=== PATIENT | female | born 1980 | race Caucasian/White ===

== ENCOUNTER 2018-06-08 07:34 | Emergency (ER) | payer BC ==
[~2018-06-08] VITALS: Ht 170.1 cm; Wt 70.3 kg
[~2018-06-08 07:34] MED LIST: FLEXERIL10 MG PO; HYDROCODONE BIT1 T11 PO; MEDROL DOSEPAK4 MG PO; MOTRIN800 MG PO; MULTIVITAMIN1 CTB PO; VICODIN 5/500 505 MG PO; VICODIN 500 MG-1 TAB PO; XANAX0.25 MG PO; ZOFRAN ODT8 MG PO; ZOFRAN4 MG PO; [UNRECOGNIZED DRUG - OTHER] TD
[2018-06-08] MEDS ORDERED: PREDNISONE50 MG PO (08:01)
[2018-06-08] MEDS ORDERED: PEPCID20 MG PO (08:01)
== END 2018-06-08 08:07 | disposition home or self-care (01) ==
LOC: ED 07:34
DX: L25.9 Unspecified contact dermatitis, unspecified cause (principal); K21.9 Gastro-esophageal reflux disease without esophagitis; F17.200 Nicotine dependence, unspecified, uncomplicated; Z88.1 Allergy status to other antibiotic agents; Z79.899 Other long term (current) drug therapy; Z90.710 Acquired absence of both cervix and uterus

== ENCOUNTER 2018-06-10 16:34 | Emergency (ER) | payer BC ==
[~2018-06-10] VITALS: Ht 170.1 cm; Wt 71.2 kg
[~2018-06-10 16:34] MED LIST changes: +PEPCID20 MG PO; +PREDNISONE50 MG PO
[2018-06-10 17:39] LABS: BASO # 0.1 10*3/uL (0.0-0.1); BASO % 0.3 % (0.0-1.0); EOS # 0.1 10*3/uL (0.0-0.4); EOS % 0.7 % (1.0-4.0); HEMATOCRIT 45.5 % (37.0-47.0); HEMOGLOBIN 15.2 g/dl (12.0-16.0); LYMPH # 4.8 10*3/uL (1.3-4.4); LYMPH % 28.8 % (27.0-41.0); MEAN CELL VOLUME 91.7 fl (81.0-99.0); MEAN CORPUSCULAR HGB 30.6 pg (27.0-31.0); MEAN CORPUSCULAR HGB CONC 33.4 g/dl (33.0-37.0); MEAN PLATELET VOLUME 9.5 fl (9.6-12.3); MONO # 0.9 10*3/uL (0.1-1.0); MONO % 5.5 % (3.0-9.0); NEUT # 10.6 10*3/uL (2.3-7.9); NEUT % 64.2 % (47.0-73.0); PLATELET COUNT AUTOMATED 411 10*3/uL (130-400); RED BLOOD COUNT 4.96 10*6/uL (4.10-5.10); RED CELL DISTRI WIDTH 12.8 % (0-14.5); WHITE BLOOD COUNT 16.5 10*3/uL (4.8-10.8)
[2018-06-10 17:55] LABS: ALBUMIN 4.1 gm/dl (3.1-4.5); ALKALINE PHOSPHATASE 93 U/L (45-117); BUN 16 mg/dl (7-24); CHLORIDE 103 mmol/L (98-107); CREATININE 0.76 mg/dL (0.55-1.02); POTASSIUM 3.7 mmol/L (3.5-5.1); SGOT/AST 16 IU/L (3-35); SGPT/ALT 28 U/L (12-78); SODIUM 139 mmol/L (136-145); TOTAL PROTEIN 7.7 gm/dL (6.4-8.2)
== END 2018-06-10 20:00 | disposition short-term general hospital (02) ==
LOC: ED 16:34
PROVIDERS: Physician Assistant
DX: T78.49XA Other allergy, initial encounter (principal); L50.9 Urticaria, unspecified; R79.1 Abnormal coagulation profile; Z88.1 Allergy status to other antibiotic agents; X58.XXXA Exposure to other specified factors, initial encounter

== ENCOUNTER 2019-01-28 18:11 | Emergency (ER) | payer BC ==
[~2019-01-28] VITALS: Ht 170.1 cm; Wt 68.9 kg
[~2019-01-28 18:11] MED LIST changes: +DICYCLOMINE HCL20 MG PO; +DULOXETINE HCL30 MG PO; +DULOXETINE HCL60 MG PO; +FAMOTIDINE20 M1 PO; +LIDOCAINE 2% PO; +MAALOX ADVANCE355 M1 PO; +NEURONTIN300 MG PO; +PANTOPRAZOLE SO40 MG PO; -XANAX0.25 MG PO; +XANAX1 MG PO
[2019-01-28 18:34] LABS: BILIRUBIN NEGATIVE (NEGATIVE); BLOOD NEGATIVE (NEGATIVE); CLARITY CLEAR (CLEAR); COLOR YELLOW (YELLOW); GLUCOSE NEGATIVE (NEGATIVE); KETONE NEGATIVE (NEGATIVE); LEUKO ESTERASE NEGATIVE (NEGATIVE); NITRITE NEGATIVE (NEGATIVE); UROBILINOGEN 0.2 E.U./dl (0.2-1.0)
[2019-01-28 18:59] LABS: EPITHELIAL CELLS 16-20
[2019-01-28 19:14] LABS: BASO # 0.1 10*3/uL (0.0-0.1); BASO % 0.7 % (0.0-1.0); EOS # 0.4 10*3/uL (0.0-0.4); EOS % 3.6 % (1.0-4.0); HEMATOCRIT 42.8 % (37.0-47.0); HEMOGLOBIN 13.9 g/dl (12.0-16.0); LYMPH # 3.3 10*3/uL (1.3-4.4); LYMPH % 32.7 % (27.0-41.0); MEAN CORPUSCULAR HGB 31.2 pg (27.0-31.0); MEAN CORPUSCULAR HGB CONC 32.5 g/dl (33.0-37.0); MEAN PLATELET VOLUME 10.1 fl (9.6-12.3); MONO # 0.5 10*3/uL (0.1-1.0); MONO % 5.2 % (3.0-9.0); NEUT # 5.7 10*3/uL (2.3-7.9); NEUT % 57.4 % (47.0-73.0); PLATELET COUNT AUTOMATED 306 10*3/uL (130-400); RED BLOOD COUNT 4.46 10*6/uL (4.10-5.10); RED CELL DISTRI WIDTH 13.7 % (0-14.5)
[2019-01-28 19:14] LABS: URINE AMPHETAMINES < 1000 (1000ng/ml); URINE BARBITURATES < 200 (200ng/ml); URINE BENZODIAZEPINES > 200 (200ng/ml); URINE CANNABINOIDS (THC) > 50 (50ng/ml); URINE COCAINE > 300 (300ng/ml); URINE METHADONE < 300 (300ng/ml); URINE OPIATES < 300 (300ng/ml)
[2019-01-28 19:21] LABS: URINE PHENCYCLIDINE < 25 (25ng/ml)
[2019-01-28 19:48] LABS: SGOT/AST 14 IU/L (3-35)
[2019-01-28 20:05] LABS: ALBUMIN 3.8 gm/dl (3.1-4.5); ALKALINE PHOSPHATASE 89 U/L (45-117); BUN 8 mg/dl (7-24); CHLORIDE 109 mmol/L (98-107); CREATININE 0.87 mg/dL (0.55-1.02); LIPASE 132 U/L (73-393); SGPT/ALT 17 U/L (12-78); SODIUM 144 mmol/L (136-145); TOTAL PROTEIN 7.1 gm/dL (6.4-8.2)
[2019-01-28] MEDS ORDERED: ZOFRAN4 MG PO (20:13)
[2019-01-28] MEDS ORDERED: DICYCLOMINE HCL20 MG PO (20:15)
== END 2019-01-28 20:23 | disposition home or self-care (01) ==
LOC: ED 18:11
PROVIDERS: Physician Assistant
DX: R10.13 Epigastric pain (principal); R11.0 Nausea; F17.210 Nicotine dependence, cigarettes, uncomplicated; Z88.1 Allergy status to other antibiotic agents; Z87.19 Personal history of other diseases of the digestive system; Z90.49 Acquired absence of other specified parts of digestive tract

== ENCOUNTER 2021-09-15 17:05 | Emergency (ER) | payer BC ==
[~2021-09-15] VITALS: Wt 71.7 kg
[2021-09-15 18:07] LABS: BASO # 0.1 10*3/uL (0.0-0.1); BASO % 0.7 % (0.0-1.0); EOS # 0.3 10*3/uL (0.0-0.4); EOS % 1.7 % (1.0-4.0); HEMATOCRIT 38.4 % (37.0-47.0); LYMPH % 20.1 % (27.0-41.0); MEAN CELL VOLUME 89.1 fl (81.0-99.0); MEAN CORPUSCULAR HGB 29.7 pg (27.0-31.0); MEAN CORPUSCULAR HGB CONC 33.3 g/dl (33.0-37.0); MEAN PLATELET VOLUME 9.4 fl (9.6-12.3); MONO # 0.8 10*3/uL (0.1-1.0); NEUT # 10.9 10*3/uL (2.3-7.9); NEUT % 72.2 % (47.0-73.0); PLATELET COUNT AUTOMATED 370 10*3/uL (130-400); RED BLOOD COUNT 4.31 10*6/uL (4.10-5.10); RED CELL DISTRI WIDTH 13.9 % (0-14.5); WHITE BLOOD COUNT 15.1 10*3/uL (4.8-10.8)
[2021-09-15 18:12] LABS: BILIRUBIN Negative (Negative); BLOOD Negative (Negative); CLARITY Clear (Clear); COLOR Yellow (Yellow); GLUCOSE Negative (Negative); KETONE Negative (Negative); LEUKO ESTERASE Negative (Negative); NITRITE Negative (Negative); PH 5.5 (4.5-8.0); SPECIFIC GRAVITY 1.025 (1.001-1.030)
[2021-09-15 18:23] LABS: ALKALINE PHOSPHATASE 87 U/L (45-117); BUN 11 mg/dl (7-24); CHLORIDE 105 mmol/L (98-107); CREATININE 0.78 mg/dL (0.55-1.02); LIPASE 192 U/L (73-393); POTASSIUM 3.6 mmol/L (3.5-5.1); SGOT/AST 22 IU/L (3-35); SGPT/ALT 35 U/L (12-78); SODIUM 139 mmol/L (136-145); TOTAL PROTEIN 7.2 gm/dL (6.4-8.2)
[2021-09-15 18:26] LABS: BACTERIA 1+; RBC 0-2 rbc/hpf (0-2)
== END 2021-09-15 20:42 | disposition home or self-care (01) ==
LOC: ED 17:05
PROVIDERS: Physician Assistant
DX: R10.9 Unspecified abdominal pain (principal); R11.0 Nausea; Z90.710 Acquired absence of both cervix and uterus; Z98.890 Other specified postprocedural states; Z88.1 Allergy status to other antibiotic agents; Z90.49 Acquired absence of other specified parts of digestive tract; F17.210 Nicotine dependence, cigarettes, uncomplicated

== ENCOUNTER 2021-10-23 21:26 | Inpatient (IN) | payer BC ==
[~2021-10-23] VITALS: Ht 180.3 cm; Wt 81.2 kg
[~2021-10-23 21:26] MED LIST changes: +XANAX0.25 MG PO; -XANAX1 MG PO
[2021-10-23 21:40] VITALS: BP 107/58
[2021-10-23 21:42] LABS: BASO # 0.1 10*3/uL (0.0-0.1); BASO % 0.5 % (0.0-1.0); EOS # 0.2 10*3/uL (0.0-0.4); HEMATOCRIT 35.8 % (37.0-47.0); LYMPH # 2.9 10*3/uL (1.3-4.4); LYMPH % 26.5 % (27.0-41.0); MEAN CELL VOLUME 89.9 fl (81.0-99.0); MEAN CORPUSCULAR HGB 29.6 pg (27.0-31.0); MEAN PLATELET VOLUME 9.2 fl (9.6-12.3); MONO # 0.7 10*3/uL (0.1-1.0); MONO % 6.5 % (3.0-9.0); PLATELET COUNT AUTOMATED 407 10*3/uL (130-400); RED BLOOD COUNT 3.98 10*6/uL (4.10-5.10)
[2021-10-23 21:58] LABS: ALKALINE PHOSPHATASE 104 U/L (45-117); BUN 9 mg/dl (7-24); CHLORIDE 107 mmol/L (98-107); CREATININE 0.84 mg/dL (0.55-1.02); LIPASE 414 U/L (73-393); POTASSIUM 3.8 mmol/L (3.5-5.1); SGOT/AST 19 IU/L (3-35); SGPT/ALT 33 U/L (12-78); SODIUM 139 mmol/L (136-145)
[2021-10-23 22:01] VITALS: BP 107/58
[2021-10-23 22:55] VITALS: BP 110/61
[2021-10-23 23:55] VITALS: BP 113/69
[2021-10-24] VITALS: BP 113/69
[2021-10-24] MEDS ORDERED: EFFEXOR XR150 M1 PO (00:26)
[2021-10-24 06:09] LABS: BASO # 0.1 10*3/uL (0.0-0.1); BASO % 0.7 % (0.0-1.0); EOS # 0.2 10*3/uL (0.0-0.4); EOS % 1.6 % (1.0-4.0); LYMPH # 2.1 10*3/uL (1.3-4.4); LYMPH % 21.3 % (27.0-41.0); MEAN CORPUSCULAR HGB CONC 32.6 g/dl (33.0-37.0); MEAN PLATELET VOLUME 9.5 fl (9.6-12.3); MONO # 0.8 10*3/uL (0.1-1.0); MONO % 7.8 % (3.0-9.0); NEUT # 6.7 10*3/uL (2.3-7.9); NEUT % 68.2 % (47.0-73.0); PLATELET COUNT AUTOMATED 358 10*3/uL (130-400); RED BLOOD COUNT 4.13 10*6/uL (4.10-5.10); RED CELL DISTRI WIDTH 14.3 % (0-14.5); WHITE BLOOD COUNT 9.8 10*3/uL (4.8-10.8)
[2021-10-24 06:14] LABS: ALKALINE PHOSPHATASE 148 U/L (45-117); BUN 10 mg/dl (7-24); CHLORIDE 109 mmol/L (98-107); CHOLESTEROL 224 mg/dL (<200); CREATININE 0.79 mg/dL (0.55-1.02); LIPASE 445 U/L (73-393); POTASSIUM 4.2 mmol/L (3.5-5.1); SGOT/AST 352 IU/L (3-35); SGPT/ALT 181 U/L (12-78); SODIUM 141 mmol/L (136-145); TOTAL PROTEIN 6.7 gm/dL (6.4-8.2); TRIGLYCERIDES 283 mg/dl (<150)
[2021-10-24 06:15] LABS: FREE T4 0.94 ng/dl (0.76-1.46); LDL CHOLESTEROL 138 mg/dL (9-159)
[2021-10-24 06:19] LABS: ACT PARTIAL THROMBO TIME 28.7 SECONDS (20.0-32.1)
[2021-10-24 08:00] VITALS: BP 107/52
[2021-10-24 08:17] LABS: VITAMIN D, 25-HYDROXY 21.8 ng/mL (30-100)
[2021-10-24 12:00] VITALS: BP 99/55
[2021-10-24 16:00] VITALS: BP 117/74
[2021-10-24 20:00] VITALS: BP 108/70
[2021-10-25] VITALS: BP 107/56
[2021-10-25 05:32] LABS: BUN 8 mg/dl (7-24); CHLORIDE 105 mmol/L (98-107); CREATININE 0.68 mg/dL (0.55-1.02); POTASSIUM 4.1 mmol/L (3.5-5.1); SODIUM 138 mmol/L (136-145)
[2021-10-25 06:13] LABS: BASO # 0.1 10*3/uL (0.0-0.1); BASO % 1.4 % (0.0-1.0); EOS # 0.2 10*3/uL (0.0-0.4); EOS % 4.1 % (1.0-4.0); HEMATOCRIT 38.7 % (37.0-47.0); LYMPH # 1.9 10*3/uL (1.3-4.4); LYMPH % 39.4 % (27.0-41.0); MEAN CELL VOLUME 90.6 fl (81.0-99.0); MEAN CORPUSCULAR HGB 29.5 pg (27.0-31.0); MEAN CORPUSCULAR HGB CONC 32.6 g/dl (33.0-37.0); MEAN PLATELET VOLUME 9.5 fl (9.6-12.3); MONO # 0.5 10*3/uL (0.1-1.0); MONO % 10.5 % (3.0-9.0); NEUT # 2.2 10*3/uL (2.3-7.9); NEUT % 44.4 % (47.0-73.0); PLATELET COUNT AUTOMATED 377 10*3/uL (130-400); RED BLOOD COUNT 4.27 10*6/uL (4.10-5.10); WHITE BLOOD COUNT 4.9 10*3/uL (4.8-10.8)
[2021-10-25 08:00] VITALS: BP 121/58
[2021-10-25 12:00] VITALS: BP 164/84
[2021-10-25 15:57] VITALS: BP 126/76
[2021-10-25 20:00] VITALS: BP 141/89
[2021-10-26] VITALS: BP 107/88
[2021-10-26 06:15] LABS: CHLORIDE 110 mmol/L (98-107); HEMATOCRIT 37.6 % (37.0-47.0); MEAN CELL VOLUME 90.6 fl (81.0-99.0); MEAN CORPUSCULAR HGB 29.4 pg (27.0-31.0); MEAN CORPUSCULAR HGB CONC 32.4 g/dl (33.0-37.0); MEAN PLATELET VOLUME 9.3 fl (9.6-12.3); PLATELET COUNT AUTOMATED 378 10*3/uL (130-400); POTASSIUM 4.1 mmol/L (3.5-5.1); RED BLOOD COUNT 4.15 10*6/uL (4.10-5.10); SODIUM 142 mmol/L (136-145); WHITE BLOOD COUNT 6.8 10*3/uL (4.8-10.8)
[2021-10-26 06:24] LABS: MANUAL DIFF REFLEX YES
[2021-10-26 06:27] LABS: ALKALINE PHOSPHATASE 212 U/L (45-117); BUN 8 mg/dl (7-24); CREATININE 0.68 mg/dL (0.55-1.02); LIPASE 721 U/L (73-393); SGOT/AST 87 IU/L (3-35); SGPT/ALT 136 U/L (12-78); TOTAL PROTEIN 6.5 gm/dL (6.4-8.2)
[2021-10-26 06:42] LABS: ATYPICAL LYMPHS 3 % (0-0); BASOPHILS 1 % (0-1); TOTAL CELLS COUNTED 100 #CELLS
[2021-10-26 06:43] LABS: PLATELET SUFFICIENCY NORMAL (NORMAL)
[2021-10-26 08:00] VITALS: BP 100/49
[2021-10-26] MEDS ORDERED: ZOFRAN4 MG PO (10:36)
[2021-10-26] MEDS ORDERED: VICO75300 PO (10:36)
[2021-10-26 12:00] VITALS: BP 155/81
[2021-10-26] MEDS ORDERED: PERCOCET 7.5-31 EACH PO (12:51)
== END 2021-10-26 12:00 | disposition home or self-care (01) | DRG 440 ==
LOC: ED 21:26 → EDHOLD 22:36 → 4E 22:36
PROVIDERS: Internal Medicine; ADMIT Student in an Organized Health Care Education/Training Program; ATTEND Student in an Organized Health Care Education/Training Program
DX: K85.90 Acute pancreatitis without necrosis or infection, unspecified (principal); K86.1 Other chronic pancreatitis; D64.9 Anemia, unspecified; D75.839 Thrombocytosis, unspecified; F17.210 Nicotine dependence, cigarettes, uncomplicated; F12.90 Cannabis use, unspecified, uncomplicated; K21.9 Gastro-esophageal reflux disease without esophagitis; F41.9 Anxiety disorder, unspecified; F32.A Depression, unspecified; Z71.6 Tobacco abuse counseling; Z88.1 Allergy status to other antibiotic agents; Z79.899 Other long term (current) drug therapy

== ENCOUNTER 2024-10-16 19:22 | Emergency (ER) | payer BC ==
[~2024-10-16] VITALS: Ht 170.1 cm; Wt 83.9 kg
[~2024-10-16 19:22] MED LIST changes: +EFFEXOR XR150 M1 PO; +HYDROCODONE-AC1 EAC1 PO; +PERCOCET 7.5-31 EACH PO; +VICO75300 PO
[2024-10-16] MEDS ORDERED: SODIUM CHLORIDE 0.9% 1,000 ML IV ONE (20:05)
[2024-10-16] MEDS ORDERED: Ondansetron Hydrochloride 4 MG/2 ML VIAL IV ONE (20:05)
[2024-10-16] MEDS ORDERED: HYDROmorphone Hydrochloride 1 MG/ML SYR IV ONE ×2 (20:05→23:30)
[2024-10-16 20:22] LABS: BASO # 0.1 10*3/uL (0.0-0.1); BASO % 0.7 % (0.0-1.0); EOS # 0.3 10*3/uL (0.0-0.4); EOS % 2.1 % (1.0-4.0); HEMATOCRIT 43.3 % (37.0-47.0); MEAN CELL VOLUME 89.5 fl (81.0-99.0); MEAN CORPUSCULAR HGB 29.8 pg (27.0-31.0); MEAN CORPUSCULAR HGB CONC 33.3 g/dl (33.0-37.0); MEAN PLATELET VOLUME 9.5 fl (9.6-12.3); MONO # 0.7 10*3/uL (0.1-1.0); MONO % 5.7 % (3.0-9.0); NEUT # 7.5 10*3/uL (2.3-7.9); NEUT % 61.3 % (47.0-73.0); PLATELET COUNT AUTOMATED 389 10*3/uL (130-400); RED BLOOD COUNT 4.84 10*6/uL (4.10-5.10); RED CELL DISTRI WIDTH 13.3 % (0-14.5); WHITE BLOOD COUNT 12.2 10*3/uL (4.8-10.8)
[2024-10-16 20:45] LABS: ALKALINE PHOSPHATASE 80 U/L (46-116); BUN 8 mg/dl (9-23); CHLORIDE 106 mmol/L (98-107); LIPASE 80 U/L (12-53); POTASSIUM 3.9 mmol/L (3.4-5.1); SGPT/ALT 30 U/L (5-49); TOTAL PROTEIN 7.3 gm/dL (6.0-8.0)
[2024-10-16] MEDS ORDERED: MORPHINE Sulfate 2 MG/ML SYR IV ONE (21:00)
[2024-10-16] MEDS ORDERED: IOHEXOL 300 MG/ML 100 ML VIAL IV ONE (21:25)
[2024-10-16] MEDS ORDERED: IOHEXOL 300 MG/ML 100 ML VIAL ONE (21:44)
[2024-10-16] MEDS ORDERED: fentaNYL CITRATE 100 MCG/2 ML VIAL IV ONE (22:40)
== END 2024-10-16 23:44 | disposition home or self-care (01) ==
LOC: ED 19:22
PROVIDERS: Nurse Practitioner Family
DX: R10.10 Upper abdominal pain, unspecified (principal); D72.829 Elevated white blood cell count, unspecified; R74.8 Abnormal levels of other serum enzymes; Z79.899 Other long term (current) drug therapy; K21.9 Gastro-esophageal reflux disease without esophagitis; F32.A Depression, unspecified; F41.9 Anxiety disorder, unspecified; F17.200 Nicotine dependence, unspecified, uncomplicated; Z91.030 Bee allergy status; Z91.041 Radiographic dye allergy status; Z90.49 Acquired absence of other specified parts of digestive tract; Z90.710 Acquired absence of both cervix and uterus

== ENCOUNTER 2024-11-15 16:58 | Emergency (ER) | payer BC ==
[~2024-11-15] VITALS: Ht 167.6 cm; Wt 80.7 kg
[2024-11-15] MEDS ORDERED: Metoclopramide Hydrochloride 10 MG/2 ML VIAL IV ONE (17:30)
[2024-11-15] MEDS ORDERED: SODIUM CHLORIDE 0.9% 1,000 ML IV ONE (17:30)
[2024-11-15] MEDS ORDERED: diphenhydrAMINE hydrochloride 50 MG/ML VIAL IV ONE (17:30)
[2024-11-15] MEDS ORDERED: fentaNYL CITRATE/PF 50 MCG/ML SYRINGE IV ONE ×2 (17:30→19:35)
[2024-11-15 17:48] LABS: BASO # 0.1 10*3/uL (0.0-0.1); BASO % 0.9 % (0.0-1.0); EOS # 0.3 10*3/uL (0.0-0.4); HEMATOCRIT 43.6 % (37.0-47.0); MEAN CELL VOLUME 91.2 fl (81.0-99.0); MEAN CORPUSCULAR HGB 29.7 pg (27.0-31.0); MEAN CORPUSCULAR HGB CONC 32.6 g/dl (33.0-37.0); MEAN PLATELET VOLUME 9.5 fl (9.6-12.3); MONO # 0.6 10*3/uL (0.1-1.0); MONO % 5.6 % (3.0-9.0); NEUT # 5.4 10*3/uL (2.3-7.9); NEUT % 52.1 % (47.0-73.0); PLATELET COUNT AUTOMATED 379 10*3/uL (130-400); RED BLOOD COUNT 4.78 10*6/uL (4.10-5.10); RED CELL DISTRI WIDTH 13.8 % (0-14.5); WHITE BLOOD COUNT 10.4 10*3/uL (4.8-10.8)
[2024-11-15 18:11] LABS: ALKALINE PHOSPHATASE 72 U/L (46-116); BUN 11 mg/dl (9-23); CHLORIDE 105 mmol/L (98-107); LIPASE 40 U/L (12-53); POTASSIUM 3.5 mmol/L (3.4-5.1); SGPT/ALT 22 U/L (5-49); TOTAL PROTEIN 6.8 gm/dL (6.0-8.0)
[2024-11-15] MEDS ORDERED: Ondansetron4 MG PO (19:33)
[2024-11-15] MEDS ORDERED: HYDROCODONE-AC1 EACH PO (19:33)
== END 2024-11-15 19:43 | disposition home or self-care (01) ==
LOC: ED 16:58
PROVIDERS: Nurse Practitioner Family
DX: A08.4 Viral intestinal infection, unspecified (principal); F17.200 Nicotine dependence, unspecified, uncomplicated; Z79.899 Other long term (current) drug therapy; Z90.49 Acquired absence of other specified parts of digestive tract; Z90.710 Acquired absence of both cervix and uterus; Z98.890 Other specified postprocedural states

== ENCOUNTER 2025-03-12 11:42 | Emergency (ER) | payer BC ==
[~2025-03-12] VITALS: Ht 167.6 cm; Wt 83.0 kg
[~2025-03-12 11:42] MED LIST changes: +HYDROCODONE-AC1 EACH PO; +Ondansetron4 MG PO
[2025-03-12] MEDS ORDERED: SODIUM CHLORIDE 0.9% 1,000 ML IV ONE (12:25)
[2025-03-12] MEDS ORDERED: HYDROmorphONE Hydrochloride 0.5 MG/0.5 ML SYRINGE IV ONE (12:25)
[2025-03-12] MEDS ORDERED: Ondansetron Hydrochloride 4 MG/2 ML VIAL IV ONE (12:25)
[2025-03-12 12:34] LABS: BASO # 0.1 10*3/uL (0.0-0.1); BASO % 0.8 % (0.0-1.0); EOS # 0.2 10*3/uL (0.0-0.4); EOS % 1.3 % (1.0-4.0); MEAN CELL VOLUME 92.2 fl (81.0-99.0); MEAN CORPUSCULAR HGB 30.5 pg (27.0-31.0); MEAN PLATELET VOLUME 9.6 fl (9.6-12.3); MONO # 0.7 10*3/uL (0.1-1.0); MONO % 5.2 % (3.0-9.0); NEUT # 8.4 10*3/uL (2.3-7.9); NEUT % 66.2 % (47.0-73.0); NUCLEATED RED BLOOD CELL 0.0 % (0.0-0.0); NUCLEATED RED BLOOD CELL 0.0 10*3/uL (0.0-0.0); PLATELET COUNT AUTOMATED 384 10*3/uL (130-400); RED CELL DISTRI WIDTH 13.3 % (0-14.5)
[2025-03-12 12:36] LABS: BILIRUBIN Negative (Negative); BLOOD Negative (Negative); CLARITY Clear (Clear); COLOR Yellow (Yellow); KETONE Negative (Negative); LEUKO ESTERASE Negative (Negative); NITRITE Negative (Negative); PH 7.0 (4.5-8.0); SPECIFIC GRAVITY 1.010 (1.001-1.030); UROBILINOGEN 0.2 E.U./dl (0.0-1.0)
[2025-03-12 13:01] LABS: BUN 11 mg/dl (9-23); SGPT/ALT 23 U/L (5-49)
[2025-03-12 13:04] LABS: WBC 0-2 wbc/hpf (0-5)
[2025-03-12] MEDS ORDERED: Metoclopramide Hydrochloride 10 MG/2 ML VIAL IV ONE (13:35)
[2025-03-12] MEDS ORDERED: diphenhydrAMINE hydrochloride 50 MG/ML VIAL IV ONE (13:35)
[2025-03-12] MEDS ORDERED: Ondansetron4 MG PO (14:24)
[2025-03-12] MEDS ORDERED: REGLAN10 M1 PO (14:24)
== END 2025-03-12 14:39 | disposition home or self-care (01) ==
LOC: ED 11:42
PROVIDERS: Emergency Medicine
DX: R10.13 Epigastric pain (principal); R20.2 Paresthesia of skin; M62.830 Muscle spasm of back; M54.6 Pain in thoracic spine; K21.9 Gastro-esophageal reflux disease without esophagitis; F12.90 Cannabis use, unspecified, uncomplicated; F17.210 Nicotine dependence, cigarettes, uncomplicated; Z90.49 Acquired absence of other specified parts of digestive tract; Z90.710 Acquired absence of both cervix and uterus; Z88.1 Allergy status to other antibiotic agents; Z91.030 Bee allergy status; Z79.899 Other long term (current) drug therapy